=== PATIENT | female | born 1990 | race Caucasian/White ===

== ENCOUNTER 2017-03-12 15:25 | Emergency (ER) | payer SELFPAY ==
[2017-03-12 15:36] VITALS: BP 140/94; PULSE 93; RESP 18; TEMP 98.3; O2SAT 100
[2017-03-12 16:24] LABS: BASOPHILS % (AUTO) 1 % (0-3); EOSINOPHILS % (AUTO) 1 % (0-9); HEMATOCRIT 37 % (35-47); MEAN CORPUSCULAR HGB CONC 34.7 gm/dl (32.0-36.0); MEAN CORPUSCULAR VOLUME 87 fL (81-99); MONOCYTES % (AUTO) 9.6 % (0-12); NEUTROPHILS % (AUTO) 70.6 % (37-80)
[2017-03-12 16:40] LABS: APPEARANCE,URINE Slightly Cloudy; BILIRUBIN,URINE NEGATIVE (NEGATIVE); COLOR,URINE Yellow; GLUCOSE, URINE (UA) NEGATIVE (NEGATIVE); KETONES,URINE NEGATIVE (NEGATIVE); LEUKOCYTE ESTERASE ,URINE TRACE (NEGATIVE); NITRATE,URINE NEGATIVE (NEGATIVE); OCCULT BLOOD,URINE NEGATIVE (NEG-TRACE); PH,URINE 6.5; UROBILINOGEN,URINE 0.2 (0.2-1.0 EU)
[2017-03-12 16:48] LABS: ALBUMIN 3.6 gm/dl (3.4-5.0); ALT 19 IU/L (14-63); CALCIUM 8.4 mg/dl (8.5-10.1); GLOM FILT RATE 105 mL/min (>60); POTASSIUM 3.1 mMol/L (3.5-5.1); SODIUM 139 mMol/L (136-145); THYROID STIMULATING HORMONE 0.854 uIU/ml (0.358-3.740)
[2017-03-12 16:55] LABS: AMPHETAMINES POSITIVE (NEGATIVE); METHADONE NEGATIVE (NEGATIVE); METHAMPHETAMINES POSITIVE (NEGATIVE); OPIATES(OP13) NEGATIVE (NEGATIVE); OXYCODONE(OXY) NEGATIVE (NEGATIVE); PROPOXYPHENE(PPX) NEGATIVE (NEGATIVE); RBC,URINE 0-1 (0-3AV/HPF); TRICYCLIC ANTIDEPRESSANTS NEGATIVE (NEGATIVE); WBC,URINE 0-6 (0-5AV/HPF)
[2017-03-12] MEDS ORDERED: POTASSIUM CHLORIDE 10 MEQ TER PO ONE (20:27)
[2017-03-12] MEDS ORDERED: POTASSIUM CHLORIDE 10 MEQ TER ONE (20:33)
== END 2017-03-12 22:09 | disposition short-term general hospital (02) | DRG 880 ==
LOC: ED 15:25
DX: R45.851 Suicidal ideations (principal); F32.9 Major depressive disorder, single episode, unspecified
CPT/HCPCS: 36415; 80053; 80305; 80307; 81001; 84443; 84703; 85025; 99283; 99284

== ENCOUNTER 2018-03-24 16:10 | Emergency (ER) | payer MEDICAID, OTHER ==
[2018-03-24 19:32] VITALS: BP 125/81; PULSE 82; RESP 18; TEMP 97.7; O2SAT 98
== END 2018-03-24 17:00 | disposition home or self-care (01) | DRG 761 ==
LOC: ED 16:10
DX: N75.0 Cyst of Bartholin's gland (principal)
CPT/HCPCS: 99282

== ENCOUNTER 2018-12-05 14:46 | Emergency (ER) | payer SELFPAY ==
[2018-12-05 18:42] VITALS: BP 103/77; PULSE 83; RESP 16; TEMP 97.4; O2SAT 100
== END 2018-12-05 16:40 | disposition home or self-care (01) | DRG 563 ==
LOC: ED 14:46
DX: S93.401A Sprain of unspecified ligament of right ankle, initial encounter (principal); W01.0XXA Fall on same level from slipping, tripping and stumbling without subsequent striking against object, initial encounter
CPT/HCPCS: 73600; 99282; 99283; E0114